=== PATIENT | male | born 1995 | race Caucasian/White ===

== ENCOUNTER 2017-06-26 09:39 | Inpatient (IN) | payer OTHER, SELFPAY ==
[2017-06-26] MEDS: diphenhydrAMINE INJ 50MG/ML VIAL (J1200) IM (10:14)
[2017-06-26] MEDS: LORazepam 2 MG/ML VIAL (J2060) IM (10:15)
[2017-06-26] MEDS: HALOPERIDOL 5 MG/ML VIAL (J1630) IM (10:15)
[2017-06-26 10:31] LABS: HEMATOCRIT 44.6 % (42.0-52.0); HEMOGLOBIN 14.6 g/dl (13.5-17.5); MEAN CORPUSCULAR HEMOGLOBIN 26.4 pg (27.0-33.0); MEAN CORPUSCULAR HGB CONC 32.7 g/dl (32.0-36.5); MEAN CORPUSCULAR VOLUME 80.7 fl (80.0-96.0); PLATELET COUNT, AUTOMATED 333 10^3/uL (150-450); RED BLOOD COUNT 5.53 10^6/uL (4.30-6.10); RED CELL DISTRIBUTION WIDTH 13.7 % (11.5-14.5); WHITE BLOOD COUNT 16.2 10^3/uL (4.0-10.0)
[2017-06-26 10:49] LABS: LACTIC ACID SEPSIS PROTOCOL 4.6 MMOL/L (0.4-2.0)
[2017-06-26] MEDS: NS 1,000 ML IV ×2 (10:50→12:02)
[2017-06-26 10:53] LABS: ALBUMIN 4.5 GM/DL (3.2-5.2); ALBUMIN/GLOBULIN RATIO 1.22 (1.00-1.93); ALKALINE PHOSPHATASE 61 U/L (45-117); ALT/SGPT 35 U/L (12-78); ANION GAP 12 MEQ/L (8-16); AST/SGOT 29 U/L (7-37); BILIRUBIN,DIRECT 0.2 MG/DL (0.0-0.2); BILIRUBIN,TOTAL 0.6 MG/DL (0.2-1.0); BLOOD UREA NITROGEN 17 MG/DL (7-18); CALCIUM LEVEL 9.6 MG/DL (8.5-10.1); CARBON DIOXIDE LEVEL 23 MEQ/L (21-32); CHLORIDE LEVEL 107 MEQ/L (98-107); CREATININE FOR GFR 1.71 MG/DL (0.70-1.30); ETHYL ALCOHOL (ETHANOL) < 0.003 % (0.000-0.010); GLOMERULAR FILTRATION RATE 53.1 (>60); GLUCOSE, FASTING 176 MG/DL (70-100); POTASSIUM SERUM 3.6 MEQ/L (3.5-5.1); SALICYLATE LEVEL < 1.7 MG/DL (5.0-30.0); SODIUM LEVEL 142 MEQ/L (136-145); TOTAL PROTEIN 8.2 GM/DL (6.4-8.2)
[2017-06-26 10:54] LABS: ACETAMINOPHEN LEVEL < 2.0 UG/ML (10.0-30.0)
[2017-06-26 13:52] LABS: ANION GAP 6 MEQ/L (8-16); BLOOD UREA NITROGEN 16 MG/DL (7-18); CALCIUM LEVEL 8.7 MG/DL (8.5-10.1); CARBON DIOXIDE LEVEL 27 MEQ/L (21-32); CHLORIDE LEVEL 113 MEQ/L (98-107); CREATININE FOR GFR 1.36 MG/DL (0.70-1.30); GLOMERULAR FILTRATION RATE > 60.0 (>60); GLUCOSE, FASTING 80 MG/DL (70-100); POTASSIUM SERUM 4.3 MEQ/L (3.5-5.1); SODIUM LEVEL 146 MEQ/L (136-145)
[2017-06-26 14:18] LABS: LACTIC ACID SEPSIS PROTOCOL 1.7 MMOL/L (0.4-2.0)
[2017-06-26 15:07] LABS: AMPHETAMINES LEVEL URINE NEGATIVE (NEGATIVE); BARBITURATES URINE NEGATIVE (NEGATIVE); BENZODIAZEPINES URINE NEGATIVE (NEGATIVE); CANNABINOIDS URINE NEGATIVE (NEGATIVE); COCAINE METABOLITE URINE NEGATIVE (NEGATIVE); METHADONE URINE NEGATIVE (NEGATIVE); OPIATES URINE NEGATIVE (NEGATIVE); PHENCYCLIDINE URINE NEGATIVE (NEGATIVE)
[2017-06-26] MEDS ORDERED: LORazepam 1 MG TAB As Ordered (17:58)
[2017-06-26] MEDS: LORazepam 1 MG TAB PO ×2 (18:00→21:10)
[2017-06-26] MEDS ORDERED: MAALOX 30 ML SUSP *UDC PO (19:30)
[2017-06-26] MEDS ORDERED: MOM 30ML SUSPENSION UDC PO (19:30)
[2017-06-26] MEDS: traZODone 50 MG TAB PO (23:36)
[2017-06-27 07:12] LABS: BASO % 0.4 % (0.0-1.0); EOS % 0.3 % (0.0-3.0); HEMATOCRIT 42.6 % (42.0-52.0); HEMOGLOBIN 13.7 g/dl (13.5-17.5); IMMATURE GRANULOCYTE % 0.4 % (0-3.0); LYMPH # 1.9 10^3/uL (1.5-6.5); MEAN CORPUSCULAR HEMOGLOBIN 26.2 pg (27.0-33.0); MEAN CORPUSCULAR HGB CONC 32.2 g/dl (32.0-36.5); MEAN CORPUSCULAR VOLUME 81.5 fl (80.0-96.0); MONO # 0.6 10^3/uL (0.0-0.8); MONO % 7.3 % (0.0-5.0); NEUTROPHILS # 5.1 10^3/uL (1.8-7.7); NEUTROPHILS % 66.6 % (36.0-66.0); PLATELET COUNT, AUTOMATED 264 10^3/uL (150-450); RED BLOOD COUNT 5.23 10^6/uL (4.30-6.10); RED CELL DISTRIBUTION WIDTH 13.9 % (11.5-14.5); WHITE BLOOD COUNT 7.7 10^3/uL (4.0-10.0)
[2017-06-27 07:36] LABS: ALBUMIN 4.1 GM/DL (3.2-5.2); ALBUMIN/GLOBULIN RATIO 1.37 (1.00-1.93); ALKALINE PHOSPHATASE 53 U/L (45-117); ALT/SGPT 33 U/L (12-78); ANION GAP 8 MEQ/L (8-16); AST/SGOT 46 U/L (7-37); BILIRUBIN,TOTAL 0.6 MG/DL (0.2-1.0); BLOOD UREA NITROGEN 12 MG/DL (7-18); CALCIUM LEVEL 9.2 MG/DL (8.5-10.1); CARBON DIOXIDE LEVEL 27 MEQ/L (21-32); CHLORIDE LEVEL 108 MEQ/L (98-107); CREATININE FOR GFR 1.24 MG/DL (0.70-1.30); GLOMERULAR FILTRATION RATE > 60.0 (>60); GLUCOSE, FASTING 102 MG/DL (70-100); POTASSIUM SERUM 3.9 MEQ/L (3.5-5.1); SODIUM LEVEL 143 MEQ/L (136-145); TOTAL PROTEIN 7.1 GM/DL (6.4-8.2)
[2017-06-27] MEDS: INFLUENZA QUADRIVALENT PF VACCINE 0.5ML SYRINGE (90686) IM (09:29)
[2017-06-27 12:37] LABS: APPEARANCE, URINE CLEAR (CLEAR); BACTERIA, URINE AUTO NEGATIVE (NEGATIVE); BILIRUBIN, URINE AUTO NEGATIVE (NEGATIVE); BLOOD, URINE BLOOD NEGATIVE (NEGATIVE); COLOR, URINE COLORLESS (YELLOW); GLUCOSE, URINE (UA) AUTO NEGATIVE (NEGATIVE); KETONE, URINE AUTO NEGATIVE (NEGATIVE); LEUKOCYTE ESTERASE, URINE AUTO NEGATIVE (NEGATIVE); NITRITE, URINE AUTO NEGATIVE (NEGATIVE); PROTEIN, URINE AUTO NEGATIVE (NEGATIVE); RBC, URINE AUTO 0 /HPF (0-3); SQUAMOUS EPITHELIAL CELL UR AU 0 /HPF (0-6); UROBILINOGEN, URINE AUTO 0.2 mg/dL (0.0-2.0); WBC, URINE AUTO 0 /HPF (0-3)
[2017-06-27] MEDS: traZODone 50 MG TAB PO (21:19)
[2017-06-28 10:41] LABS: VITAMIN B12 LEVEL 285 PG/ML (247-911)
[2017-06-28] MEDS: ACETAMINOPHEN TAB 650MG DOSE (2X325MG) PO (20:18)
[2017-06-28] MEDS: traZODone 50 MG TAB PO (20:52)
[2017-06-29] MEDS: ACETAMINOPHEN TAB 650MG DOSE (2X325MG) PO ×3 (03:11→20:09)
[2017-06-29] MEDS: hydrOXYzine 25 MG TAB PO ×2 (10:26→20:08)
[2017-06-29] MEDS: IBUPROFEN 600 MG TAB PO ×2 (10:26→18:10)
[2017-06-29] MEDS: traZODone 100 MG TAB PO (20:08)
[2017-06-30] MEDS: ACETAMINOPHEN TAB 650MG DOSE (2X325MG) PO ×2 (08:10→17:52)
[2017-06-30] MEDS: hydrOXYzine 25 MG TAB PO ×2 (08:11→17:51)
[2017-06-30] MEDS: PILL CRUSHER/CUTTER 1 EACH XX ×2 (09:49→20:58)
[2017-06-30] MEDS: IBUPROFEN 600 MG TAB PO (11:39)
[2017-06-30] MEDS: traZODone 100 MG TAB PO (21:02)
[2017-07-01] MEDS: hydrOXYzine 25 MG TAB PO ×3 (05:03→17:07)
[2017-07-01] MEDS: ACETAMINOPHEN TAB 650MG DOSE (2X325MG) PO (12:02)
[2017-07-01] MEDS: IBUPROFEN 600 MG TAB PO (14:40)
[2017-07-01] MEDS: traZODone 100 MG TAB PO (20:15)
[2017-07-02] MEDS: hydrOXYzine 25 MG TAB PO ×2 (01:18→08:03)
== END 2017-07-02 10:03 | disposition home or self-care (01) | DRG 751 ==
LOC: M ED 09:39 → M ED INP 19:16 → M PSY 21:59
DX: F29 Unspecified psychosis not due to a substance or known physiological condition (principal); F32.3 Major depressive disorder, single episode, severe with psychotic features; F19.159 Other psychoactive substance abuse with psychoactive substance-induced psychotic disorder, unspecified